=== PATIENT | female | born 1965 | race Two or more races ===

== ENCOUNTER 2024-08-12 10:00 | Outpatient (AMB) | payer BC, SELFPAY ==
[2024-08-12 10:12] VITALS: BP 121/76; PULSE 66; RESP 18; TEMP 36.4; O2SAT 97; BMI 34.7
--- NOTE | 2024-08-12 10:12 | GSCOFFNT_ITS ---
Vital Signs - [facility] 08/12/24 10:12 Height 1.6 m Height Method Stated Weight 89.018 kg Weight Measurement Method Standing Scale BMI 34.7 BP 121/76 Blood Pressure Source Automatic Cuff Blood Pressure Location Left Upper Arm Position Sitting Respiration 18 Pulse 66 Pulse Source Monitor Temp 97.6 F Temp Source Temporal Artery Scan Pulse Oximetry (%) 97 Oxygen Delivery Method Room Air Med/Allergies Allergies & Medications Allergies adhesive tape Allergy (Verified 08/12/24 10:13) Rash Sulfa (Sulfonamide Antibiotics) Allergy (Verified 08/12/24 10:13) Hives amoxicillin Adverse Reaction (Verified 08/12/24 10:13) Diarrhea Medication Reconciliation montelukast 10 mg tablet (Singulair) 10 mg PO HS #0 tabs 03/13/16 [History Confirmed 08/12/24] spironolactone 50 mg tablet (Aldactone) 50 mg PO HS #0 tabs 03/13/16 [History Confirmed 08/12/24] pantoprazole 40 mg tablet,delayed release 40 mg PO QDAY PRN Acid Reflux 11/05/21 [History Confirmed 08/12/24] mirabegron 50 mg tablet,extended release 24 hr (Myrbetriq) 50 mg PO QDAY 03/31/24 [History Confirmed 08/12/24] MA Intake Visit Data Collection New Patient or Established: Established Patient (seen at [facility] within 3 years) Seen by Clinical Staff ONLY (RN/MA): No Reason for Visit:: HEMORRHOIDS Pain Present Currently: Yes Pain Location: Unable to identify Pain scale:: 3 Senior Editor Required: No PCP or OBGYN visit in last 3 months: Yes Hx Now: No Do You Feel Safe at Home: Yes Authorities Contacted: N/A Smoking Status Smoking Status: Never smoker Immunization / Flu Flu Vaccine in the Last 12 Months: No Flu Vaccine Exclusion Criteria: Refused by Patient Past Medical History Past Medical History NEUROLOGIC: Negative Neurological Disorders or Seizures CARDIAC: Positive Cardiac Disorders, Hypertension (no meds) and Varicose Veins; Negative Congestive Heart Failure RESPIRATORY: Positive Asthma and Sleep Apnea (uses cpap nightly); Negative Chronic Obstructive Pulmonary Disease (COPD) GASTROINTESTINAL: Positive Gastrointestinal Disorders (H.PYLORI, dysphagia), Diverticulosis, Ulcer, Hemorrhoids and Gastroesophageal Reflux Disease; Negative Hepatitis or Colorectal Cancer GENITOURINARY: Negative Genitourinary Disorders or Renal Disease REPRODUCTIVE: Positive Previous Pregnancies (x2); Negative Breast Cancer MUSCULOSKELETAL: Negative Bone Cancer ENDOCRINE: Negative Endocrine Disorders, Diabetes Mellitus Type 1 or Diabetes Mellitus Type 2 HEMATOLOGIC: Negative Blood Disorders or Anemia PSYCHO/SOCIAL: Positive Anxiety OTHER HISTORY: Positive Shingles, Chicken Pox, Measles and Mumps; Negative Hospitalization, Falls, Blood Transfusions, Blood Transfusion Reaction, Anesthesia Reactions, Organ Transplant, MRSA, VRSA, Clostridium Difficile, Cancer, Breast Cancer, Cervical Cancer, Colorectal Cancer, Lung Cancer or Ovarian Cancer Family History FAMILY HISTORY: Positive Family Cardiac Disorders (father) and Family Anesthesia Reaction (mother states flat lined . unknown reason); Negative Family Psychiatric Problems, Family Respiratory Disorders, Family Gastrointestinal Problems, Family Cancer or Family Surgery Surgical History SURGICAL: Positive Ear Surgery, Tonsillectomy (AT 11 YEARS OLD), Open Reduction Internal Fixation (Right middle finger) and Section (x1); Negative Cardiac Surgery, Endocrine Surgery, Abdominal Surgery, Transurethral Resection, Joint Replacement, Neurologic Surgery or Organ Transplant Social History SMOKING STATUS: Smoking status: Never smoker ALCOHOL: Alcohol Intake: Current HOUSING: Housing: House HPI HPI Narrative 59F referred for thrombosed hemorrhoid. Pt states she has had hemorrhoids for many years, sometimes associated with itching, discomfort and difficulty wiping the area but generally they have not been too bothersome. Last week pt noted a severe pain at the left portion of the anus associated with swelling. She has been using suppositories, lidocaine cream and sitz baths and feels the pain is a bit better but she is still having difficulty sitting due to the swelling. Pt underwent colonoscopy 03/2024 showing tubular adenoma x2 and hemorrhoids Pt states her BMs are soft and regular, she tends to go 1-2 times per day and rarely strains PMH: Mild asthma, GERD PSHx: Csection Meds: Myrbetriq, montelukast, protonix PRN, no antiplt or anticoagulation Allergies: Sulfa, amoxicillin Family hx: sister had breast CA, no known CRC Objective/Exam General General Appearance: alert, cooperative and well groomed Resp Respiratory exam: Absent respiratory distress Rectal Rectal exam: Present hemorrhoids (left thrombosed external hemorrhoid, mildly tender to palpation) Assessment & Plan Diagnosis / Problem List (1) Thrombosed hemorrhoids: Status: Acute Assessment & Plan: 59F presenting with signs and symptoms of a thrombosed hemorrhoid. As her pain is improving I explained to pt that incision and drainage may provide minimal benefit, with the risk of bleeding. Pt expressed understanding and would still like to pursue incision to alleviate the swelling which has persisted despite maximal medical therapy Orders: Orders Lidocaine 1% vial 20ml Today K64.5 - Perianal venous thrombosis Office Procedures GNS Level of Care Nursing/Assessment Patient Status: Established Patient Nursing Assessment/Reassesment: Medication Reconciliation, Update PMH in EMR and Vital Signs Coordination of Care: Complex Care and Chronic Disease 1-5, Consent,records obtained, informed consent, Education Simp Pt/Fam, Results/Orders obtained and Staff clarify orders Established Patient Charge Established Patient Point Assignment: 90 Established Patient Point Charge: EP Level 3 (80-115) Surgical Proc/IM SQ injection Minor Surgical Procedure: Yes (SILVER NITRATE) Medication Given Medication Given Medication Given: Yes Office Meds Xylocaine 10 mg/mL (1 %) injection solution Performing Provider: Chloe Gamino MD Performing Location: [facility] Administered by: Chloe Gamino MD on 08/12/24 12:09 Dose Route Admin Location Dispensed Lot Number Expiration Date [facility] Director Of Institutional Research 20 mL Infiltration 20 mL [id number] 09/16/27 [id number] [facility] Patient Portal Questionaires Social History Living Situation History Housing: House Tobacco History Smoking Status: Never smoker Alcohol History Alcohol Intake: Current Domestic Abuse History Do You Feel Safe at Home: Yes Review of Systems Report any current symptoms Only answer those that you have currently: Past Medical History Past Medical History Have you ever been diagnosed with any of the following: Neurological Problems Seizures: No Cardiology Problems Congestive Heart Failure: No Hypertension: Yes (no meds) Varicose Veins: Yes Respiratory Problems Chronic Obstructive Pulmonary Disease (COPD): No Asthma: Yes Sleep Apnea: Yes (uses cpap nightly) Stomache/Intestinal Problems Hepatitis: No Diverticulosis: Yes Ulcer: Yes Colorectal Cancer: No Hemorrhoids: Yes Gastroesophageal Reflux Disease: Yes Genital/Urinary Problems Renal Disease: No Reproductive Problems Breast Cancer: No Previous Pregnancies: Yes (x2) Musculoskeletal Problems Bone Cancer: No Endocrine Problems Diabetes Mellitus Type 1: No Diabetes Mellitus Type 2: No Blood Problems Anemia: No Psychologic Problems Anxiety: Yes Other Problems Hospitalization: No Shingles: Yes Falls: No Blood Transfusions: No Blood Transfusion Reaction: No Anesthesia Reactions: No Organ Transplant: No MRSA: No VRSA: No Chicken Pox: Yes Measles: Yes Mumps: Yes Clostridium Difficile: No Cancer: No Cervical Cancer: No Lung Cancer: No Ovarian Cancer: No
== END 2024-08-12 12:11 | disposition home or self-care (01) ==
PROVIDERS: PCP Registered Nurse; Referring Provider Specialist; Supervising Provider Surgery; Visit Provider Surgery
DX: K64.5 Perianal venous thrombosis (principal)
CPT/HCPCS: 46050; 99213; J3490; A9270; G0463

== ENCOUNTER → 2024-11-17 | Outpatient (CLI) | payer OTHER, SELFPAY ==
--- NOTE | 2024-11-17 15:20 | XR_ITS ---
Examination: Bilateral wrists 6 views TECHNIQUE: AP oblique lateral each wrist total 6 views Date and time: November 17, 2024 1530 hours INDICATIONS: Bilateral wrist pain beginning 6 months ago. FINDINGS: Mild to moderate osteopenia No fracture or dislocation involving either wrist Mild bilateral osteoarthritis first carpometacarpal joints No erosive or other significant arthritic change IMPRESSION: No erosive or other significant arthritic change involving either wrist
--- NOTE | 2024-11-17 15:20 | XR_ITS ---
Examination: Bilateral hands, 6 views. Technique: AP, Oblique, Lateral each hand total 6 views Date and time of exam: November 17, 2024 1552 hours INDICATIONS: Bilateral hand pain 6 months. FINDINGS: Mild to moderate osteopenia. No fracture or dislocation involving either hand No erosive or other significant arthritic change involving either hand Mild bilateral osteoarthritis first carpometacarpal joints IMPRESSION: No fracture or dislocation involving either hand No erosive or other significant arthritic change involving either
== END | disposition home or self-care (01) ==
LOC: CDIM 15:14
PROVIDERS: PCP Family Medicine; Referring Provider Nurse Practitioner Gerontology; Visit Provider Nurse Practitioner Gerontology
DX: M25.531 Pain in right wrist (principal); M25.532 Pain in left wrist; M79.641 Pain in right hand; M79.642 Pain in left hand
CPT/HCPCS: 73110; 73130

== ENCOUNTER → 2024-11-22 | Outpatient (CLI) | payer BC, SELFPAY ==
--- NOTE | 2024-11-22 08:13 | XR_ITS ---
EXAMINATION: Cervical spine, 5 views Technique: Cervical spine AP, AP odontoid, lateral, bilateral obliques, 5 views Exam date and time: November 22, 2024 0816 hours INDICATIONS: Left-sided neck pain beginning 6 months ago FINDINGS: Adequate alignment cervical vertebral bodies No cervical fracture Intact odontoid Early degenerative disc disease C4-C5, C5-C6 with mild to moderate bilateral neural foraminal stenosis IMPRESSION: Early degenerative disc disease C4-C5, C5-C6 with mild to moderate bilateral neural foraminal stenosis
[2024-11-22 09:32] LABS: Basophils # (Auto) 0.1 Thou/mm3 (0.0-0.2); Basophils % (Auto) 1 % (0-2.5); Eosinophils # (Auto) 0.4 Thou/mm3 (0.0-0.5); Eosinophils % (Auto) 6 % (0-10); Hematocrit 46.4 % (36.0-46.0); Hemoglobin 15.3 g/dL (12.0-16.0); Immature Granulocytes Auto 0.03 Thou/mm3 (0.00-0.00); Lymphocytes # (Auto) 2.1 Thou/mm3 (1.0-4.8); Lymphocytes % (Auto) 28 % (10-50); Mean Corpuscular HGB Conc 33.0 g/dl (31.0-37.0); Mean Corpuscular Hemoglobin 28.5 pg (25.0-35.0); Mean Corpuscular Volume 86 fL (80-100); Monocytes # (Auto) 0.5 Thou/mm3 (0.0-0.8); Monocytes % (Auto) 7 % (0-12); Neutrophils # (Auto) 4.3 Thou/mm3 (1.8-7.7); Neutrophils % (Auto) 58 % (37-80); Nucleated Red Blood Cell # 0.00 Thou/mm3 (0.00-0.00); Nucleated Red Blood Cell % 0 /100 WBC (0); Platelet Count 245 Thou/mm3 (140-440); RDW Standard Deviation 40.4 fL (36.4-46.3); Red Blood Count 5.37 Miln/mm3 (4.00-5.20); White Blood Count 7.4 Thou/mm3 (3.6-11.0)
[2024-11-22 09:55] LABS: Follicle Stimulating Hormone 67.14 mIU/mL (See Note); Vitamin B12 577 pg/mL (211-911); Vitamin D 25 Hydroxy Total 45.7 ng/mL (7.3-40.2)
[2024-11-22 10:02] LABS: Alanine Aminotransferase 30 U/L (10-49); Albumin, Serum 4.8 gm/dL (3.5-5.0); Albumin/Globulin Ratio 2.1 (1.2-2.2); Alkaline Phosphatase 123 U/L (46-116); Anion Gap 10 (7-16); Aspartate Amino Transferase 20 U/L (0-34); BUN/Creatinine Ratio 14 Ratio (12-20); Bilirubin,Total 0.8 mg/dL (0.3-1.2); Blood Urea Nitrogen 15 mg/dL (9-23); Calcium 10.2 mg/dL (8.3-10.6); Calcium (Corrected) 10.2 mg/dL (8.5-10.1); Carbon Dioxide 25.1 mMol/L (20.0-31.0); Cardiac Risk Estimate 4.2 RATIO (3.7-5.6); Chloride 108 mMol/L (98-107); Cholesterol 192 mg/dL (132-200); Creatinine (Component) 1.1 mg/dL (0.6-1.3); Free T4 (Free Thyroxine) 1.02 ng/dL (0.89-1.76); Globulin 2.3 gm/dL (2.3-3.5); Glucose 105 mg/dL (74-106); HDL Cholesterol 46 mg/dL (40-60); LDL Cholesterol,Calculated 124 mg/dL (0-130); Osmolality,Calculated 285 (275-295); Potassium 4.6 mMol/L (3.4-5.1); Sodium 143 mMol/L (136-145); Thyroid Stimulating Hormone 2.43 uIU/mL (0.55-4.78); Total Protein 7.1 gm/dL (5.7-8.2); Triglycerides 110 mg/dL (30-150); eGFR 59 See Note
[2024-11-22 11:06] LABS: Glucose Estimated Average 108 mg/dL (80-131); Hemoglobin A1C 5.4 % Hgb (4.8-6.0)
[2024-12-01 06:28] LABS: Estradiol, Ultrasensitive* 6 pg/mL; Luteinizing Hormone* 36.1 mIU/mL; Progesterone,LC/MS* <0.1 ng/mL
== END | disposition home or self-care (01) ==
LOC: CDIM 08:07 → COPL 08:31
PROVIDERS: PCP Family Medicine; Referring Provider Registered Nurse; Visit Provider Radiology Diagnostic Radiology
DX: M50.322 Other cervical disc degeneration at C5-C6 level (principal); M48.02 Spinal stenosis, cervical region; Z00.00 Encounter for general adult medical examination without abnormal findings; N95.1 Menopausal and female climacteric states
CPT/HCPCS: 36415; 72050; 80053; 80061; 82306; 82607; 82670; 83001; 83002; 83036; 84144; 84439; 84443; 85025

== ENCOUNTER → 2024-12-16 | Outpatient (CLI) | payer BC, SELFPAY ==
--- NOTE | 2024-12-16 14:30 | XR_ITS ---
Examination: Screening digital mammography, bilateral Computer aided detection 3-D breast Tomosynthesis, bilateral Date and time of exam: December 16, 2024 1432 hours Compared to mammograms dating to December 05, 2018 Indication: Screening Technique: Nonmagnified MLO, CC views of the breasts to been obtained, reconstructed from 3-D Tomosynthesis images. R2 computer aided detection program utilized for evaluation of suspicious masses and/or abnormal calcifications. 3-D Tomosynthesis images obtained. Findings: Scattered areas of fibroglandular density. Benign calcifications. No interval suspicious masses Impression: BI-RADS category II: Benign Findings. Recommend 1 year follow-up mammogram.
== END | disposition home or self-care (01) ==
LOC: CDIM 14:14
PROVIDERS: Referring Provider Registered Nurse; Visit Provider Registered Nurse
DX: Z12.31 Encounter for screening mammogram for malignant neoplasm of breast (principal); R92.323 Mammographic fibroglandular density, bilateral breasts; R92.1 Mammographic calcification found on diagnostic imaging of breast
CPT/HCPCS: 77063; 77067

== ENCOUNTER 2025-02-28 09:09 | Outpatient (AMB) | payer BC, SELFPAY ==
--- NOTE | 2025-02-28 09:19 | AMB.GYNCLNOT ---
Vital Signs 02/28/25 09:20 Height 1.6 m Height Method Stated Weight 89.131 kg Weight Measurement Method Standing Scale BMI 34.8 BP 130/81 Blood Pressure Source Automatic Cuff Blood Pressure Location Left Upper Arm Position Sitting Respiration 14 Pulse 70 Pulse Source Monitor Temp 97.8 F Temp Source Oral Pulse Oximetry (%) 96 Oxygen Delivery Method Room Air Allergies/Home Meds Allergies & Medications Allergies adhesive tape Allergy (Verified 02/28/25 09:23) Rash Sulfa (Sulfonamide Antibiotics) Allergy (Verified 02/28/25 09:23) Hives amoxicillin Adverse Reaction (Verified 02/28/25 09:23) Diarrhea Medication Reconciliation montelukast 10 mg tablet (Singulair) 10 mg PO HS #0 tabs 03/13/16 [History Confirmed 02/28/25] spironolactone 50 mg tablet (Aldactone) 50 mg PO HS #0 tabs 03/13/16 [History Confirmed 02/28/25] mirabegron 50 mg tablet,extended release 24 hr (Myrbetriq) 50 mg PO QDAY 03/31/24 [History Confirmed 02/28/25] Intake Visit Data Collection New Patient or Established: Established Patient (seen at 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 Menopausal: Yes If menopausal, at what age did it occur: 52 Currently sexually active: No If not currently sexually active, have you ever been sexually active: Yes 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 1. Little interest or pleasure in doing things: not at all 2. Feeling down, depressed, or hopeless: not at all Total score: 0 PHQ-9 3. Trouble falling or staying asleep, or sleeping too much: Not at all 4. Feeling tired or having little energy: Not at all 5. Poor appetite or overeating: Not at all 6. Feeling bad about yourself - or that you are a failure or have let yourself or your family down: Not at all 7. Trouble concentrating on things, such as reading the newspaper or watching television: Not at all 8. Moving or speaking so slowly that other people could have noticed? - Or the opposite - being so fidgety or restless that you have been moving around a lot more than usual: not at all 9. Thoughts that you would be better off or of hurting yourself in some way: Not at all Total score: 0 Source: Developed by Drs. Christian Duvall, Darlin Thibodeaux, Juan Antonio Way and colleagues, with an educational mercy from [employer]. Depression screen completed yes Social History Living Situation History Marital Status: Single Housing: House Tobacco History Smoking Status: Never smoker Second Hand Smoke Exposure: No Alcohol History Alcohol Intake: Current Alcohol Intake Frequency: holidays/special occasions only Domestic Abuse History Do You Feel Safe at Home: Yes History of Present Illness HPI Narrative Menopause concerns, urinary urgency, mixed incontinence Umu Leach is a 59-year-old female presenting for menopause concerns. She is experiencing urinary urgency and mixed incontinence. She is currently taking mirabegron as prescribed by a urologist for these urinary symptoms, as well as spironolactone for cystic acne. The patient has a Nexplanon implant that is not medically indicated at this time. There is a family history of breast cancer in her sister, which creates hesitancy regarding estrogen-containing hormone replacement therapy options. Medical History: - Urinary urgency and mixed incontinence - Cystic acne - Gastroesophageal reflux disease (GERD) with intermittent pantoprazole intake Medications: - Mirabegron prescribed by a urologist for urinary urgency and mixed incontinence - Spironolactone for cystic acne - Pantoprazole for GERD (intermittent use) - FSH (11-22-2024): 67.14 - LH (11-22-2024): 36.1 - Estradiol (11-22-2024): 6 - Vitamin D3 (11-22-2024): 45.7 - Ferritin (11-22-2024): 1.02 - Hemoglobin A1c (11-22-2024): 5.4 - Lipid panel (11-22-2024): Normal - CMP (11-22-2024): Slightly elevated alkaline phosphatase - CT abdomen and pelvis without contrast (September 2023): No renal or ureteral calculi, no hydronephrosis, no bowel obstruction, anti-verted uterus, no pelvic mass, advanced degenerative disease - Mammogram (12-16-2024): BIRADS category 2, scattered areas of fibroglandular density, benign calcifications, no suspicious masses Exam General General Appearance: alert, in no apparent distress and healthy appearing Head Head exam: atraumatic Neck Neck exam: Present normal inspection and trachea midline Chest Chest inspection: Present normal inspection and symmetric chest wall rise External exam: Present normal external exam; Absent tenderness Neuro Neurological exam: Present oriented X3 Psych Psychiatric exam: Present normal affect and normal mood Office Procedures OBC Clinic LOC & Office Proc's Nursing/Assessment Patient Status: Established Patient OB Clinic Nursing Assessment: Medication Reconciliation, Update PMH in EMR and Vital Signs OB Clinic Coordination of Care: Complex Care and Chronic Disease 1-5, Consent,records obtained, informed consent, Education Simp Pt/Fam, Lab and Imaging orders, Results/Orders obtained and Staff clarify orders Established Patient Charge Established Patient Point Assignment: 105 Established Patient Point Charge: EP Level 3 (80-115) Assessment & Plan Diagnosis / Problem List (1) Menopausal and female climacteric states: Status: Acute (2) Urge incontinence: Status: Acute (3) Acne vulgaris: Status: Acute Plan Menopause Assessment: Patient is experiencing menopausal symptoms, confirmed by elevated FSH (67.14) and LH (36.1) levels, and low estradiol (6) from labs performed on 11/22/2024. The patient has a Nexplanon implant, which is not medically indicated at this time given her menopausal status. Detailed counseling was provided regarding Nexplanon removal, explaining that the contraceptive device is no longer necessary due to her menopausal state. Discussed risks, benefits, and alternatives of hormone replacement therapy (HRT), with particular attention to her family history of breast cancer. Patient was informed about potential risks of HRT, including increased breast cancer risk, and alternative management strategies. Combination HRT would be needed due to the presence of her uterus. Plan: - Remove Nexplanon implant - Discuss risks, benefits, and alternatives of combination HRT, considering family history of breast cancer - Provide counseling on bioidentical hormones and naturopathic medicines Urinary urgency and mixed incontinence Assessment: Patient reports urinary urgency and mixed incontinence. She is currently taking mirabegron prescribed by a urologist for these symptoms. A CT scan of the abdomen and pelvis without contrast from September 2023 showed no renal or ureteral calculi, no hydronephrosis, and no pelvic mass, which rules out several potential causes for her urinary symptoms. Plan: - Continue mirabegron as prescribed by urologist - Refer to urogynecologist Dr. Wisdom in [place] for possible cystoscopy - Refer to urogynecologist Dr. Wisdom in [place] for consideration of intracavitary Botox or antibiotic installation Cystic acne Assessment: Patient is taking spironolactone for cystic acne. Plan: - Continue spironolactone for cystic acne Breast cancer screening Assessment: Mammogram performed on December 16, 2024, is BIRADS category 2, with scattered areas of fibroglandular density and benign calcifications. No suspicious masses were identified. Plan: - Continue routine breast cancer screening as per guidelines Cervical cancer screening Assessment: Pap smear was performed today as part of routine cervical cancer screening. 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
[2025-02-28 09:20] VITALS: BP 130/81; PULSE 70; RESP 14; TEMP 36.6; O2SAT 96; BMI 34.8
== END 2025-02-28 10:09 | disposition home or self-care (01) ==
LOC: HODSOBC 09:09
PROVIDERS: Supervising Provider Obstetrics & Gynecology; Visit Provider Obstetrics & Gynecology
DX: N95.1 Menopausal and female climacteric states (principal); N39.46 Mixed incontinence; L70.0 Acne vulgaris; Z12.4 Encounter for screening for malignant neoplasm of cervix; Z97.5 Presence of (intrauterine) contraceptive device; Z80.3 Family history of malignant neoplasm of breast; K21.9 Gastro-esophageal reflux disease without esophagitis; Z79.899 Other long term (current) drug therapy; Z79.3 Long term (current) use of hormonal contraceptives; Z88.0 Allergy status to penicillin; Z88.2 Allergy status to sulfonamides; Z91.048 Other nonmedicinal substance allergy status
CPT/HCPCS: 99213; G0463